=== PATIENT | male | born 1985 ===

== ENCOUNTER 2022-01-09 12:36 | Emergency (ER) | payer OTHER ==
[~2022-01-09] VITALS: Ht 188 cm; Wt 122.5 kg
[2022-01-09] MEDS ORDERED: Neurontin 300300 MG PO (14:40)
[2022-01-12] MEDS ORDERED: CLIN150 PO (14:35)
[2022-01-12] MEDS ORDERED: HYDR1TAB94 PO (14:35)
== END 2022-01-09 14:56 | disposition home or self-care (01) ==
LOC: ER 12:36
DX: M79.2 Neuralgia and neuritis, unspecified (principal); Z88.0 Allergy status to penicillin; Z88.1 Allergy status to other antibiotic agents; Z79.899 Other long term (current) drug therapy; F17.200 Nicotine dependence, unspecified, uncomplicated
CPT/HCPCS: 99283; A9270